=== PATIENT | male | born 1940 | race Caucasian/White ===

== ENCOUNTER 2020-08-24 08:44 | Outpatient (CLI) | payer MEDICARE ==
[2020-08-24] MEDS ORDERED: LATA7.5D EACHEYE (09:22)
== END 2020-08-24 23:59 | disposition home or self-care (01) ==
LOC: STAR 08:44
PROVIDERS: ATTEND Urology
DX: Z01.812 Encounter for preprocedural laboratory examination (principal); Z20.822 Contact with and (suspected) exposure to COVID-19; N40.1 Benign prostatic hyperplasia with lower urinary tract symptoms
CPT/HCPCS: 93005; U0003

== ENCOUNTER 2020-08-30 10:58 | Day surgery (SDC) | payer MEDICARE ==
[~2020-08-30] VITALS: Ht 193 cm; Wt 87.3 kg
[~2020-08-30 10:58] MED LIST: LATA7.5D EACHEYE; METOPROLOL 1 MG/ML, 5ML ONE
[2020-08-30] MEDS ORDERED: CHLORHEXIDINE 15 ML UDC ONE (11:42)
[2020-08-30 11:54] LABS: MICROSCOPIC INDICATED
[2020-08-30] MEDS ORDERED: CHLORHEXIDINE 15 ML UDC PO ONE (12:00)
[2020-08-30] MEDS ORDERED: LACTATED RINGERS 1,000 ML IV SCH (12:00)
[2020-08-30] MEDS ORDERED: FENTANYL PF 100 MCG/2ML ONE (12:45)
[2020-08-30] MEDS ORDERED: WATER-INJECTION,STERILE 10 ML IV ONE (12:46)
[2020-08-30] MEDS ORDERED: PROPOFOL 10 MG/ML, 20ML ONE (12:46)
[2020-08-30] MEDS ORDERED: DEXAMETHASONE 4 MG/ML, 1ML ONE (12:46)
[2020-08-30] MEDS ORDERED: CEFAZOLIN 1,000 MG ONE (12:46)
[2020-08-30] MEDS ORDERED: LIDOCAINE-MPF 2% ,5ML ONE (12:46)
[2020-08-30] MEDS ORDERED: GENTAMICIN 80 MG/2 ML ONE (12:52)
[2020-08-30] MEDS ORDERED: HYDROmorphone 2 MG/ML, 1ML IVPush PRN (13:30)
[2020-08-30] MEDS ORDERED: FENTANYL PF 100 MCG/2ML IV PRN (13:30)
[2020-08-30] MEDS ORDERED: hydrALAzine 20 MG/ML, 1ML IV PRN (13:30)
[2020-08-30] MEDS ORDERED: MEPERIDINE/PF 25MG/0.5ML IVPush PRN (13:30)
[2020-08-30] MEDS ORDERED: OXYcodone 5 MG/5 ML ORAL.SOL UDC PO PRN (13:30)
[2020-08-30] MEDS ORDERED: MIDAZOLAM 1 MG/ML, 2ML IV PRN (13:30)
[2020-08-30] MEDS ORDERED: morphine SULFATE 10 MG/ML, 1ML IV PRN (13:30)
[2020-08-30] MEDS ORDERED: METOCLOPRAMIDE 5 MG/ML, 2ML IV PRN (13:30)
[2020-08-30] MEDS ORDERED: PROMETHAZINE 25 MG/ML, 1ML IV PRN (13:30)
[2020-08-30] MEDS ORDERED: ONDANSETRON 2MG/ML, 2ML IVPush PRN (13:30)
[2020-08-30] MEDS ORDERED: ALBUTEROL SULFATE 2.5 MG/3 ML NPPB PRN (13:30)
[2020-08-30] MEDS ORDERED: LABETALOL 5MG/ML, 20ML ONE (15:23)
[2020-08-30] MEDS: LABETALOL 5MG/ML, 20ML IV PRN ×2 (15:30→15:50)
== END 2020-08-30 17:40 | disposition home or self-care (01) ==
LOC: OUT 10:58
PROVIDERS: ATTEND Urology
DX: N40.1 Benign prostatic hyperplasia with lower urinary tract symptoms (principal); R33.8 Other retention of urine; N41.0 Acute prostatitis; N41.1 Chronic prostatitis; N13.30 Unspecified hydronephrosis; Z79.899 Other long term (current) drug therapy; Z88.1 Allergy status to other antibiotic agents
CPT/HCPCS: 52601; 81001; 87077; 87086; 87186; 88305; J0690; J1100; J1580; J2704; J3010; J7120